=== PATIENT | female | born 1980 | race Two or more races ===

== ENCOUNTER 2018-12-03 07:09 | Inpatient (IN) | payer OTHER ==
[~2018-12-03] VITALS: Ht 157.5 cm; Wt 68.0 kg
[~2018-12-03 07:09] MED LIST: DOCUSATE SODIU100 MG PO; Mylicon 125MG PO; OXYC1TAB9 PO; PRENATE ADVANCE PO
[2018-12-06] MEDS ORDERED: IBUPROFEN400 MG PO (07:36)
[2018-12-06] MEDS ORDERED: GAS RELIEF125 MG PO (07:36)
[2018-12-06] MEDS ORDERED: PREPLUS CA-FE1 EACH PO (07:36)
[2018-12-06] MEDS ORDERED: DOCUSATE SODIU100 MG PO (07:36)
== END 2018-12-06 11:35 | disposition home or self-care (01) | DRG 785 ==
LOC: OB/GYN 07:09 → LDR 07:09 → OB/GYN 15:26
PROVIDERS: ADMIT Obstetrics & Gynecology
PROC: 0UB70ZZ Excision of Bilateral Fallopian Tubes, Open Approach (ICD-10-PCS; 2018-12-03)
PROC: 4A1HXCZ Monitoring of Products of Conception, Cardiac Rate, External Approach (ICD-10-PCS; 2018-12-03)
PROC: 4A033R1 Measurement of Arterial Saturation, Peripheral, Percutaneous Approach (ICD-10-PCS; 2018-12-03)
PROC: 10D00Z1 Extraction of Products of Conception, Low, Open Approach (ICD-10-PCS; principal; 2018-12-03 09:00)
DX: O34.211 Maternal care for low transverse scar from previous cesarean delivery (principal); O75.82 Onset (spontaneous) of labor after 37 completed weeks of gestation but before 39 completed weeks gestation, with delivery by (planned) cesarean section; Z30.2 Encounter for sterilization; Z37.0 Single live birth; Z3A.38 38 weeks gestation of pregnancy